=== PATIENT | female | born 1980 | race Caucasian/White ===

== ENCOUNTER 2017-01-25 19:04 | Emergency (ER) | payer OTHER ==
[2017-01-25] MEDS ORDERED: Acetaminophen 500 MG TAB ONE (19:39)
[2017-01-25] MEDS ORDERED: traMADol HCl 50 MG TAB ONE (19:39)
--- NOTE | 2017-01-26 10:39 | RAD ---
RIGHT WRIST 3 VIEWS: DATE: 01/25/17. FINDINGS: No fracture was seen. The carpals appear intact. The distal radius and ulna appear normal. IMPRESSION: No acute finding. POS: HOME
== END 2017-01-25 19:49 | disposition home or self-care (01) ==
LOC: BURERS 19:04
DX: S60.211A Contusion of right wrist, initial encounter (principal); S60.031A Contusion of right middle finger without damage to nail, initial encounter; S60.041A Contusion of right ring finger without damage to nail, initial encounter; S60.051A Contusion of right little finger without damage to nail, initial encounter; E03.9 Hypothyroidism, unspecified; G43.909 Migraine, unspecified, not intractable, without status migrainosus; E05.90 Thyrotoxicosis, unspecified without thyrotoxic crisis or storm; F41.9 Anxiety disorder, unspecified; F31.9 Bipolar disorder, unspecified; F98.8 Other specified behavioral and emotional disorders with onset usually occurring in childhood and adolescence; F43.10 Post-traumatic stress disorder, unspecified; F17.290 Nicotine dependence, other tobacco product, uncomplicated; W21.01XA Struck by football, initial encounter; Y93.61 Activity, american tackle football

== ENCOUNTER 2018-01-15 15:34 | Emergency (ER) | payer OTHER ==
[2018-01-15 16:16] LABS: Clarity Turbid (Clear); Leukocyte Large (Negative); Specific Gravity, Urine 1.015 (1.005-1.030)
[2018-01-15 16:17] LABS: Bilirubin Large (Negative); Blood, Urine Trace (Negative); Glucose, Urine (Dipstick) 250 mg/dL (Negative); Nitrite Positive (Negative); Protein, Urine (Dipstick) > or equal to 300 mg/dL (Neg-Trace); Urobilinogen > or = 8.0 mg/dL (0.2-1.0)
[2018-01-15 16:18] LABS: Bacteria/HPF 4+ HPF (None Seen); RBC/HPF 0-3 HPF (0-3); WBC/HPF 21-50 HPF (0-3)
[2018-01-15 16:20] LABS: #Lymphocytes 1.8 thou/uL (1.20-3.40); #Monocytes 0.3 thou/uL (0.11-0.59); #Neutrophils 4.5 thou/uL (1.40-6.50); %Basophils 0.5 % (0.0-1.0); %Eosinophils 0.3 % (0.0-10.0); %Lymphocytes 26.8 % (21.0-51.0); %Monocytes 4.5 % (0.0-10.0); %Neutrophils 67.9 % (42.0-75.0); Hemoglobin 14.5 g/dL (12.0-16.0); Mean Corpuscular HGB CONC 31.3 g/dL (32.0-36.0); Mean Corpuscular Hemoglobin 25.1 pg (27.0-31.0); Mean Corpuscular Volume 80.3 fL (78.0-98.0); Mean Platelet Volume 7.4 fL (7.4-10.4); Platelet Count 336 thou/uL (130-400); RBC Distribution Width 11.9 % (11.5-14.5); Red Blood Cell (RBC) Count 5.76 mill/uL (4.20-5.40); White Blood Cell (WBC) Count 6.7 thou/uL (4.8-10.8)
[2018-01-15 16:35] LABS: ALT (SGPT) 25 U/L (8-55); AST (SGOT) 22 U/L (5-34); Albumin 5.1 g/dL (3.5-5.0); Alkaline Phosphatase 79 U/L (40-150); Anion Gap 16 mmol/L (10-20); BUN (Urea Nitrogen) 11 mg/dL (7.0-18.7); Bilirubin, Total 0.3 mg/dL (0.2-1.2); Calc. Creatinine Clearance 0 mL/min (70-130); Calcium 10.3 mg/dL (7.8-10.44); Carbon Dioxide 24 mmol/L (22-29); Chloride 104 mmol/L (98-107); Estimated GFR-MDRD 82; Globulin 3.2 g/dL (2.4-3.5); Glucose 83 mg/dL (70-105); Potassium 3.6 mmol/L (3.5-5.1); Protein, Total 8.3 g/dL (6.0-8.3); Sodium 140 mmol/L (136-145)
[2018-01-15] MEDS ORDERED: cefTRIAXone\\ROCEPHIN 1 GM VIAL ONE (16:36)
[2018-01-15] MEDS ORDERED: Ketorolac Tromethamine 60 MG/2 ML VIAL ONE (16:36)
== END 2018-01-15 17:03 | disposition home or self-care (01) ==
LOC: BURERS 15:34
DX: N39.0 Urinary tract infection, site not specified (principal); E03.9 Hypothyroidism, unspecified; G43.909 Migraine, unspecified, not intractable, without status migrainosus; E05.00 Thyrotoxicosis with diffuse goiter without thyrotoxic crisis or storm; F41.9 Anxiety disorder, unspecified; F31.9 Bipolar disorder, unspecified; F60.3 Borderline personality disorder; F43.10 Post-traumatic stress disorder, unspecified; F98.8 Other specified behavioral and emotional disorders with onset usually occurring in childhood and adolescence; F17.290 Nicotine dependence, other tobacco product, uncomplicated; Z79.899 Other long term (current) drug therapy
CPT/HCPCS: 36415; 80053; 81003; 81015; 85025; 87086; 96372; J0696; J1885

== ENCOUNTER 2018-07-29 16:03 | Emergency (ER) | payer OTHER ==
[2018-07-29] MEDS ORDERED: Bicillin CR 1.2 MILL UNITS/2 ML SYRINGE ONE (16:19)
== END 2018-07-29 16:46 | disposition home or self-care (01) ==
LOC: BURERS 16:03
DX: J02.9 Acute pharyngitis, unspecified (principal); F41.9 Anxiety disorder, unspecified; F31.9 Bipolar disorder, unspecified; F17.290 Nicotine dependence, other tobacco product, uncomplicated; Z79.899 Other long term (current) drug therapy
CPT/HCPCS: 96372; J0558

== ENCOUNTER 2021-02-27 08:40 | Emergency (ER) | payer OTHER ==
[2021-02-27] MEDS ORDERED: Sulfameth/Trimethoprim DS 800-160mg TAB ONE (09:38)
[2021-02-27] MEDS ORDERED: predniSONE 20 MG TAB ONE (09:38)
== END 2021-02-27 09:45 | disposition home or self-care (01) ==
LOC: BURERS 08:40
DX: R05.9 Cough, unspecified (principal); R00.0 Tachycardia, unspecified; R06.2 Wheezing; I50.9 Heart failure, unspecified; E03.9 Hypothyroidism, unspecified; E05.00 Thyrotoxicosis with diffuse goiter without thyrotoxic crisis or storm; F17.290 Nicotine dependence, other tobacco product, uncomplicated; Z79.899 Other long term (current) drug therapy
CPT/HCPCS: 99284; J7512